=== PATIENT | male | born 1980 | race Caucasian/White ===

== ENCOUNTER 2021-11-23 21:15 | Emergency (ER) | payer OTHER ==
[2021-11-23 22:46] LABS: INFLUENZA A NAA NEGATIVE (NEGATIVE)
[2021-11-23 22:50] LABS: CORONAVIRUS 2019 SARS-COV-2 POSITIVE (NEGATIVE)
[2021-11-23] MEDS ORDERED: ONDANSETRON ODT4 MG PO (23:03)
== END 2021-11-23 23:03 | disposition home or self-care (01) ==
LOC: FER 21:15
PROVIDERS: Nurse Practitioner Family
DX: U07.1 COVID-19 (principal); Z91.041 Radiographic dye allergy status
CPT/HCPCS: 99283; U0002